=== PATIENT | male | born 1975 | race Asian ===

== ENCOUNTER 2017-01-07 13:02 | Emergency (ER) | payer MEDICARE, MEDICAID ==
--- NOTE | 2017-01-07 14:17 | ED Physician Chart ---
Chief Complaint/HPI - Patient Information Date Seen:: 01/07/17 Time Seen:: 14:07 Chief Complaint:: INJURY TO RT GREAT TOE History of Present Illness:: PT IS VERY IMPAIRED AND NON-VERBAL. HE WAS BROUGHT TO THE ED BY HIS [employer] ME[employer]ANIC WHO DID NOT WITNESS THE INJURY. INJURY OCCURRED THIS AM. PT RESISTS ANY ATTEMPT TO EXAMINE THE TOE. IT IS NOT ACTIVELY BLEEDING. I CAN SEE THAT THE NAIL IS PARTIALLY AVULSED Allergies:: Allergies Allergy/AdvReac Type Severity Reaction Status Date / Time No Known Allergies Allergy Verified 01/07/17 13:30 Vitals:: Vital Signs - 8 hr 01/07/17 13:31 Temp 97.9 F HR 88 RR 16 BP 100/50 O2 Sat % 97 Review of Systems - Review of Systems General/Constitutional: Other (THE PT IS UNABLE TO GIVE A REVIEW OF SYSTEMS.) Past Medical History - Past Medical History Obtainable: No ([employer] ME[employer]IC DIDN'T BRING PAST MEDICAL RECORD.) Past Medical History: Dementia (UNABLE TO PROVIDE THIS INFO) Family Medical History - Family Member Mother History Unknown: Yes Physical Exam - Physical Examination General/Constitutional: Awake, Well-developed, well-nourished, Alert, No distress, Non-toxic appearing Head: Atraumatic Eyes: Lids, conjuctiva normal, PERRL (UN-COOPERATIVE WITH EOM EXAM) Skin: Nl inspection, No skin lesions, Well hydrated (WILL NOT OPEN MOUTH FOR EXAM.) Other ENMT comments:: LIPS ARE NORMAL. Neck: No JVD, No mass, No stridor Respiratory: Nl effort/Exclusion, Clear to Auscultation, No Wheeze/Rhonchi/Rales Cardio Vascular: RRR, No murmur, gallop, rubs, NL S1 S2 Other Cardio Vascular comments:: ADEQUATE PULSES ALL FOUR EXTREMITIES. Other GI comments:: The abdomen is nondistended. Bowel sounds are normal. No hernias. Nontender to palpation. No masses appreciated. Rectal exam deferred at my discretion. : No CVA tenderness Other Extremities comments:: The patient's right great toe as a partial emotion of the nail. There are no other deformities noted. No active bleeding at the present time. Patient has full range of motion of all the major joints with above average strength. No long bone deformities or evidence of fracture. Neuro/Psych: Normal motor strength Other Neuro/Psych comments:: ALERT. NON-VERB NO FACIAL ASYMMETRY. GOOD STRENGTH IN ALL 4 EXTREMITIES. SEVERE MENTAL IMPAIRMENT. Labs/Radiology/EKG Results - Radiology Results Results: SINGLE VIEW OF THE RIGHT GREAT TOE: NO FRACTURES. NO DISLOCATION. NO RADIO- OPAQUE FOREIGN BODIES. IMPRESSION: NO EVIDENCE OF ACUTE TRAUMA. Assessment - Assessment General Assessment: CASE SUMMARY: this 41-year-old male was brought to the emergency department by his caregiver because of an injury to his right great toe. The mechanism of injury was unknown and the patient is unable to provide any information. On physical examination there is a partial portion of the nail of the right great toe. No active bleeding is present. The patient was too uncooperative for me to anesthetize the toe with lidocaine. Under normal circumstances I would've anesthetize the toe and remove the partially avulsed nail. Rather than struggle with the patient or attempt to put him to sleep, I had nursing clean the nail area with normal saline irrigation and then dress it with a dry sterile dressing. I believe the nail will eventually come off on it's own or during a dressing change. Pt discharged in stable condition. MDM DDX INJURY TO RT GREAT TOE: NOT closed FX based on X-ray. NOT open fracture based on X-ray. NOt sub-ungual hematoma based on physical exam. ED Septic Shock - . Is Septic Shock (SBP<90, OR Lactate>4 mmol\L) present?: No - <6hrs of presentation: Vital Signs: Vital Signs - 8 hr 01/07/17 13:31 Temp 97.9 F HR 88 RR 16 BP 100/50 O2 Sat % 97 Reassessment (Disposition) - Reassessment Reassessment Condition:: Unchanged - Diagnosis Diagnosis:: PARTIAL AVULSION RT GREAT TOENAIL - Patient Disposition Discharge/Transfer:: Residential/Boarding Care ED Discharge Plan - Patient Disposition Admit/Discharge/Transfer: PT DISCHARGED HOME Condition at Disposition: Stable Instructions: Toe Avulsion Additional Instructions: Pls follow up with PMD in 1-2 days.
--- NOTE | 2017-01-08 11:23 | Diagnostic Imaging Report ---
Exam: Right great toe HISTORY: Trauma Findings Multiple views of the right great toe reviewed the study demonstrates no evidence of fracture dislocation or soft tissue swelling IMPRESSION: Normal right great toe
== END 2017-01-07 15:40 | disposition home or self-care (01) ==
LOC: ER 13:02
DX: S91.201A Unspecified open wound of right great toe with damage to nail, initial encounter (principal); X58.XXXA Exposure to other specified factors, initial encounter; Y93.89 Activity, other specified; Y92.89 Other specified places as the place of occurrence of the external cause; Y99.8 Other external cause status
CPT/HCPCS: 73660-TC-T5; Z7502